=== PATIENT | female | born 1975 | race Caucasian/White ===

== ENCOUNTER 2020-11-02 11:22 | Inpatient (IN) | payer OTHER ==
[~2020-11-02] VITALS: Ht 160 cm; Wt 66.3 kg
[2020-11-02 11:34] VITALS: BP 150/89
[2020-11-02] MEDS ORDERED: GABAPENTIN800 M1 PO (11:51)
[2020-11-02] MEDS ORDERED: MONTELUKAST SODI4 M1 PO (11:51)
[2020-11-02] MEDS ORDERED: CELEXA 20 MG TA20 MG PO (11:52)
[2020-11-02] MEDS ORDERED: GABAPENTIN100 MG PO (11:52)
[2020-11-02] MEDS ORDERED: ARIMIDEX1 MG PO (11:52)
[2020-11-02] MEDS ORDERED: FELDENE20 MG PO (11:52)
[2020-11-02] MEDS ORDERED: EUTHYROX25 MCG PO (11:53)
[2020-11-02] MEDS ORDERED: AMBIEN5 MG PO (11:53)
[2020-11-02 11:54] LABS: ABSOLUTE LYMPHOCYTES 0.6 thou/uL (0.8-5.3); ABSOLUTE MONOCYTES 0.2 thou/uL (0.0-1.2); ABSOLUTE NEUTROPHILS 7.8 thou/uL (1.6-8.1); BASOPHILS 0.2 %; EOSINOPHILS 0.1 %; HEMATOCRIT 38.6 % (37.0-47.0); HEMOGLOBIN 12.9 gm/dL (12.0-15.0); LYMPHOCYTES 6.5 %; MCHC 33.5 g/dL (28.0-37.0); MCV 92.5 fL (80.0-100.0); MONOCYTES 2.3 %; MPV 7.3 fl. (7.2-11.1); NUCLEATED RBCS 0 /100WBC; PLATELET COUNT* 257 thou/uL (150-400); POLYS 90.9 %; RBC 4.17 mil/uL (4.20-5.00); RDW-CV 12.5 % (10.5-14.5); WBC 8.6 thou/uL (4.0-11.0)
[2020-11-02 12:04] LABS: CALCIUM 9.4 mg/dL (8.5-10.1); CREATININE 0.8 mg/dL (0.6-1.3); POTASSIUM 3.9 mmol/L (3.5-5.1)
[2020-11-02 12:09] LABS: ACETAMINOPHEN < 2 ug/mL (10-30); ALCOHOL < 10 mg/dL (<10); SALICYLATE < 2.8 mg/dL (2.8-20.0)
[2020-11-02 12:13] LABS: ALBUMIN 4.6 g/dL (3.4-5.0); DIRECT BILIRUBIN 0.2 mg/dL (<0.1-0.3); TOTAL BILIRUBIN 0.5 mg/dL (<0.1-1.0); TOTAL PROTEIN 8.3 g/dL (6.4-8.2)
[2020-11-02 12:19] LABS: URINE BILIRUBIN NEGATIVE (Negative); URINE BLOOD NEGATIVE (Negative); URINE CLARITY CLEAR; URINE COLOR YELLOW; URINE GLUCOSE-RANDOM NEGATIVE (Negative); URINE KETONES NEGATIVE (Negative); URINE LEUKOCYTES NEGATIVE (Negative); URINE NITRITE NEGATIVE (Negative); URINE PROTEIN NEGATIVE (Negative); URINE SPECIFIC GRAVITY 1.015 (1.005-1.030); URINE UROBILINOGEN 0.2 E.U./dl (0.2-1.0)
[2020-11-02 12:26] LABS: AMP/METHAMP Negative (Negative); BARBITURATES Negative (Negative); BENZODIAZEPINES Negative (Negative); COCAINE Negative (Negative); METHADONE Negative (Negative); OPIATES POSITIVE (Negative); PCP Negative (Negative); THC Negative (Negative)
[2020-11-02 16:08] LABS: CHOLESTEROL 221 mg/dL (<200); HDL CHOLESTEROL 112 mg/dL (>40); LDL CHOLESTEROL 97 mg/dL (<100); TRIGLYCERIDE 63 mg/dL (<150); VLDL 13 mg/dL (<40)
[2020-11-02 16:11] LABS: SERUM ASSESSMENT Clear
[2020-11-02 16:32] VITALS: BP 133/87
[2020-11-02 16:45] VITALS: BP 147/96
[2020-11-02 23:06] LABS: GLYCOHEMOGLOBIN (HGB A1C) 5.4 % (4.8-5.6)
[2020-11-03 04:35] LABS: HEMATOCRIT 32.2 % (37.0-47.0); MCH 31.2 pg (26.0-34.0); MCHC 33.6 g/dL (28.0-37.0); MCV 92.9 fL (80.0-100.0); RBC 3.47 mil/uL (4.20-5.00); RDW-CV 12.6 % (10.5-14.5); WBC 6.5 thou/uL (4.0-11.0)
[2020-11-03 04:46] LABS: HEMOGLOBIN 10.8 gm/dL (12.0-15.0)
[2020-11-03 04:51] LABS: ALBUMIN 3.7 g/dL (3.4-5.0); CALCIUM 8.4 mg/dL (8.5-10.1); CREATININE 0.7 mg/dL (0.6-1.3); MAGNESIUM 1.8 mg/dL (1.8-2.4); POTASSIUM 3.7 mmol/L (3.5-5.1); TOTAL BILIRUBIN 0.3 mg/dL (<0.1-1.0); TOTAL PROTEIN 6.8 g/dL (6.4-8.2)
[2020-11-03 07:58] VITALS: BP 147/91
--- NOTE | 2020-11-03 12:11 | EKG ---
[place] [address] ELECTROCARDIOGRAM REPORT Name: POLINA SNOW Room: [address] ADM IN M.R.#: [id number] Admission: 11/02/20 Attend Phys: Gerardo Palumbo, Discharge: Date of : 77 Date of Service: 11/02/20 1138 Report #: [id number] THIS REPORT FOR: //name// [facility] ED Test Date: 2020-11-02 Test Time: 11:38:17 Pat Name: POLINA SNOW Department: Room: [facility] Gender: F [employer] Administrator: AYE : 1975 Requested By: Benny Gtz Order Number: [id number] MD: Chase Garcia Measurements Intervals [place] Rate: 89 P: 77 WI: 124 QRS: 68 QRSD: 94 T: -34 QT: 379 QTc: 462 Interpretive Statements Sinus rhythm Consider right atrial enlargement Abnormal T, consider ischemia, anterior leads No previous ECG available for comparison Electronically Signed On 11-03-2020 12:11:03 CDT by Chase Garcia [email or web address] <ELECTRONICALLY SIGNED> By: Chase Garcia MD, [facility] 11/03/20 1211 1138 1138 Chase Garica MD, [facility] /EPI
[2020-11-03 16:01] VITALS: BP 145/94
[2020-11-03 20:30] VITALS: BP 155/99
[2020-11-04 05:13] LABS: HEMATOCRIT 33.6 % (37.0-47.0); HEMOGLOBIN 11.1 gm/dL (12.0-15.0); MCH 30.9 pg (26.0-34.0); MCV 93.8 fL (80.0-100.0); RBC 3.58 mil/uL (4.20-5.00); RDW-CV 12.7 % (10.5-14.5); WBC 5.1 thou/uL (4.0-11.0)
[2020-11-04 05:28] LABS: ALBUMIN 3.9 g/dL (3.4-5.0); CALCIUM 9.4 mg/dL (8.5-10.1); CREATININE 0.7 mg/dL (0.6-1.3); POTASSIUM 3.4 mmol/L (3.5-5.1); TOTAL BILIRUBIN 0.3 mg/dL (<0.1-1.0); TOTAL PROTEIN 7.1 g/dL (6.4-8.2)
[2020-11-04 07:45] VITALS: BP 156/99
[2020-11-04] MEDS ORDERED: ZOFRAN ODT4 MG PO (08:11)
[2020-11-04 12:16] VITALS: BP 156/99
[2020-11-04 13:56] VITALS: BP 156/99
[2020-11-04 13:57] VITALS: BP 156/99
== END 2020-11-04 14:03 | disposition home or self-care (01) | DRG 440 ==
LOC: M.ERS 11:22 → M.ORTHSURG 14:18 → M.TBA-ER 14:18 → M.ORTHSURG 16:32
PROVIDERS: Emergency Medicine; ADMIT Internal Medicine; ATTEND Internal Medicine
DX: K85.90 Acute pancreatitis without necrosis or infection, unspecified (principal); M79.7 Fibromyalgia; F32.9 Major depressive disorder, single episode, unspecified; G62.9 Polyneuropathy, unspecified; E03.9 Hypothyroidism, unspecified; R73.9 Hyperglycemia, unspecified; Z20.822 Contact with and (suspected) exposure to COVID-19; Z79.899 Other long term (current) drug therapy; Z88.6 Allergy status to analgesic agent; Z88.1 Allergy status to other antibiotic agents; Z88.0 Allergy status to penicillin; Z90.710 Acquired absence of both cervix and uterus; Z85.3 Personal history of malignant neoplasm of breast